=== PATIENT | female | born 1980 | race African-American/Black ===

== ENCOUNTER 2021-01-03 06:39 | Emergency (ER) | payer OTHER ==
[~2021-01-03] VITALS: Ht 160 cm; Wt 59.0 kg
--- NOTE | ~2021-01-03 | EMS ---
[address] [address] EMS Patient Care Report Name: EVY LINARES Room #: REG GUILLE Al#: [id number] Admission: 01/03/21 Attend Phys: Discharge: Date of : 82 Report #: [id number] THIS REPORT FOR: //name// Report Transmitted: 01/03/2021 07:41 EMS Care Summary [place], [place]/[facility] Incident [id number] @ 01/03/2021 05:47 Incident Location [facility] [address] [place] [address] Patient EVY LINARES Female, 40 Years 1980 Patient Address [address] [place] [address] Patient History Hypertension (HTN),Inflammatory Liver Disease,Depression, Patient Allergies No known allergies, Patient Medications Cymbalta, Chief Complaint weakness Disposition Transported No Lights/[place] Dispatch Reason Breathing Problem Transported To [facility] Narrative M42 arrived with GFD on a breathing problem call to find the pt laying down just inside of her front door complaining of weakness and depression from a relative's . She stated that she did not fall and that she had been off of her meds for days and that she hadn't had anything to eat for days but was [facility] [address] [place] [address] EMS Patient Care Report Name: EVY LINARES Room #: REG ER Mikaela#: [id number] Admission: 01/03/21 Attend Phys: Discharge: Date of : 82 Report #: [id number] drinking water. Pt was carried to the cot, buckled in, loaded into the unit and transported to the hospital with no change. M42 assisted the pt onto the hospital bed transferred care to hospital staff. and cleared. M42 placed back in service. Initial Vitals @06:00P: 111,R: 16,BP: 133/93,Pain: 2/10,GCS: 15,CO: 4,SpO2: 98,Revised Trauma: 12, @06:13P: 109,R: 14,BP: 122/89,Pain: 0/10,GCS: 15,SpO2: 100,Revised Trauma: 12, Assessments @05:55MENTAL:Person Oriented,Place Oriented,Time Oriented,Event Oriented,SKIN:HEENT:LUNG SOUNDS:General: Nausea,ABDOMEN:General: Nausea,PELVIS//GI:EXTREMITIES:PULSE:Radial: 2+ Normal,NEURO:@06:00MENTAL:No Abnormalities,SKIN:No Abnormalities,HEENT:Head/Face: No Abnormalities,Eyes: No Abnormalities,Neck/Airway: No Abnormalities,LUNG SOUNDS:General: No Abnormalities,Left Upper: No Abnormalities,Right Upper: No Abnormalities,Left Lower: No Abnormalities,Right Lower: No Abnormalities,ABDOMEN:General: No Abnormalities,Left Upper: No Abnormalities,Right Upper: No Abnormalities,Left Lower: No Abnormalities,Right Lower: No Abnormalities,PELVIS//GI:No Abnormalities,EXTREMITIES:Left Arm: No Abnormalities,Right Arm: No Abnormalities,Left Leg: No Abnormalities,Right Leg: No Abnormalities,PULSE:NEURO:No Abnormalities, Impression Generalized Weakness Procedures @05:56ALS AssessmentResponse: UnchangedSucceeded@05:55BLS AssessmentResponse: Unchanged Timeline 05:45,Call Received 05:45,Dispatch Notified 05:47,Dispatched 05:48,En Route 05:54,On Scene 05:55,At Patient 05:55,BLS Assessment,Response: Unchanged 05:56,ALS Assessment,Response: UnchangedSucceeded, 06:00,BP: 133/93 M,PULSE: 111,RR: 16 R,SPO2: 98 Ox,ETCO2: ,BG: ,PAIN: 2,GCS: 15, 06:11,Depart Scene 06:13,BP: 122/89 M,PULSE: 109,RR: 14 R,SPO2: 100 Ox,ETCO2: ,BG: ,PAIN: 0,GCS: 15, 06:34,At Destination [facility] [address] [place] [address] EMS Patient Care Report Name: EVY LINARES Room #: REG ER .R.#: [id number] Admission: 01/03/21 Attend Phys: Discharge: Date of : 82 Report #: [id number] 06:58,Call Closed Disclaimer [email or web address] Copyright 2020 [employer] This EMS Care Summary contains data elements from the applicable legal record (which may be displayed differently). It is designed to provide pertinent information for the following purposes: continuity of care, clinical quality, and state data reporting. The complete legal record is available to ED staff and administrators of the receiving hospital in [facility]'s Patient Tracker. All data is provided "as is."
[2021-01-03] MEDS ORDERED: REMERON30 MG PO (07:50)
[2021-01-03] MEDS ORDERED: CYMBALTA60 MG PO (07:50)
[2021-01-03] MEDS ORDERED: DESYREL150 MG PO (07:51)
[2021-01-03] MEDS ORDERED: NALTREXONE HCL50 MG PO (07:52)
[2021-01-03] MEDS ORDERED: FOLIC ACID1 MG PO (07:52)
[2021-01-03] MEDS ORDERED: VITAMIN D350 MCG PO (07:53)
[2021-01-03 08:30] LABS: ABSOLUTE NEUTROPHILS 4.3 thou/uL (1.4-8.2); BASOPHILS 0.2 % (0.0-2.0); EOSINOPHILS 1.7 % (0.0-3.0); HEMATOCRIT 36.2 % (37.0-47.0); HEMOGLOBIN 12.4 gm/dL (12.0-15.0); LYMPHOCYTES 12.5 % (24.0-44.0); MCH 33.1 pg (26.0-34.0); MCHC 34.2 g/dL (28.0-37.0); MCV 96.9 fL (80.0-100.0); MONOCYTES 5.8 % (1.0-8.0); PLATELET COUNT 229 thou/uL (150-400); POLYS 79.8 % (36.0-66.0); RBC 3.74 mil/uL (4.20-5.00); RDW 16.4 % (10.5-14.5); WBC 5.4 thou/uL (4.0-11.0)
[2021-01-03 08:50] LABS: ALBUMIN 3.5 g/dL (3.4-5.0); ANION GAP 13 mmol/L (7-16); BUN 9 mg/dL (7-18); CALCIUM 8.2 mg/dL (8.5-10.1); CHLORIDE 98 mmol/L (98-107); CO2 26 mmol/L (21-32); CREATININE 0.8 mg/dL (0.6-1.0); GLUCOSE 137 mg/dL (74-106); LIPASE 455 U/L (73-393); MAGNESIUM 1.2 mg/dL (1.8-2.4); SGOT 452 U/L (15-37); SGPT 164 U/L (14-59); SODIUM 137 mmol/L (136-145); TOTAL BILIRUBIN 1.7 mg/dL (0.2-1.0); TOTAL PROTEIN 6.9 g/dL (6.4-8.2); TROPONIN-I <0.06 ng/mL (<0.06)
[2021-01-03 08:51] LABS: POTASSIUM 2.5 mmol/L (3.5-5.1)
--- NOTE | 2021-01-03 09:23 | EKG ---
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 : 1980 Requested By: Bryce Rodríguez Order Number: [id number] MD: Supa Ortiz Measurements Intervals [place] Rate: 95 P: 42 RI: 100 QRS: 38 QRSD: 85 T: 57 QT: 402 QTc: 506 Interpretive Statements Sinus rhythm Short RI interval Abnormal R-wave progression, early transition Borderline prolonged QT interval No previous ECG available for comparison Electronically Signed On 01-03-2021 9:23:18 CDT by Suap Ortiz [email or web address] <ELECTRONICALLY SIGNED> By: Supa Ortiz MD, [facility] 01/03/21 [id number] Supa Ortiz MD, FACC /EPI
[2021-01-03 13:27] LABS: URINE BILIRUBIN NEGATIVE (Negative); URINE BLOOD NEGATIVE (Negative); URINE CLARITY CLEAR; URINE COLOR YELLOW; URINE GLUCOSE-RANDOM* NEGATIVE (Negative); URINE KETONES NEGATIVE (Negative); URINE LEUKOCYTES-REFLEX NEGATIVE (Negative); URINE NITRITE-REFLEX NEGATIVE (Negative); URINE PROTEIN (DIPSTICK) NEGATIVE (Negative); URINE SPECIFIC GRAVITY <= 1.005 (1.005-1.035); URINE UROBILINOGEN 0.2 E.U./dl (0.2-1.0)
[2021-01-03] MEDS ORDERED: AUGMENTIN 875-1 EACH PO (14:21)
[2021-01-03] MEDS ORDERED: KLOR-CON20 ME1 PO (14:21)
[2021-01-03 14:28] VITALS: BP 128/88
== END 2021-01-03 14:29 | disposition home or self-care (01) ==
LOC: ER 06:39
PROVIDERS: Emergency Medicine
DX: K52.9 Noninfective gastroenteritis and colitis, unspecified (principal); E87.6 Hypokalemia; E83.42 Hypomagnesemia; F32.9 Major depressive disorder, single episode, unspecified; F41.9 Anxiety disorder, unspecified; Z79.899 Other long term (current) drug therapy; Z20.822 Contact with and (suspected) exposure to COVID-19